=== PATIENT | male | born 1960 | race Caucasian/White ===

== ENCOUNTER 2019-01-31 08:32 | Inpatient (IN) | payer MEDICARE ==
[~2019-01-31] VITALS: Ht 185.4 cm; Wt 123.8 kg
--- NOTE | ~2019-01-31 | OP ---
PATIENT NAME: NIEL CUEVAS MEDICAL RECORD: [id number] :60 LOCATION:[facility] [place] ADMISSION DATE:01/31/19 SURGEON: TERESA RUDD MD DATE OF OPERATION: 01/31/2019 REFERRING PHYSICIANS: 1. Garry Cervantes MD 2. Archie Uriarte MD ATTENDING PHYSICIAN TODAY: Jareth Linton MD PREOPERATIVE DIAGNOSES: End-stage renal disease and dependence on hemodialysis with a left brachiocephalic arteriovenous fistula, created by Dr. Gonzalez in November of 2016, now with recurring stenosis in the cephalic arch and recurring in-stent and xu-stent stenoses. OPERATIONS PERFORMED: Left arm AV fistulogram with balloon angioplasty of recurrent cephalic arch stenosis and Lutonix drug-coated balloon treatment. Balloon angioplasty of a less significant 70% stenosis of the cephalic vein in the upper third of the humerus. SURGEON: Teresa Rudd MD ANESTHESIA: General with LMA per SECURITY SYSTEM ENGINEER. PREOPERATIVE NOTE: Mr. Cuevas is a 58-year-old -[place] male patient from [place], [place]. He has hypertension, diabetes, and end-stage renal disease. He is on dialysis in [place] with a left BC AV fistula. He has had problems with recurring carotid arch stenosis, which has required many angioplasties at [facility]. He has had a Wallstent graft implanted in the carotid arch and continues to have recurring in-stent and xu-stent stenoses. Last angiogram was done, I believe, in October by Dr. Uriarte. It was his recommendation that the patient should have a drug-coated balloon treatment. The patient has not had an angioplasty since that time as far as I know. His fistula on my exam today is hyperpulsatile and his exam is certainly consistent with recurrent cephalic arch stenosis. The patient is not a smoker, but uses smokeless tobacco. He is not on any anticoagulants or antiplatelet medications. DESCRIPTION OF PROCEDURE: With the patient under anesthesia in supine position, he was prepped and draped in sterile manner. The fistula was accessed with micropuncture technique and a 6-Venezuelan introducer sheath was placed. Contrast injections revealed an area of 70% stenosis in the cephalic vein in the upper third of the arm and high-grade pre-stent and intra-stent stenoses in the carotid arch. There was a fairly large collateral around this stent, also between the cephalic vein and the subclavian vein. The area of stenosis in the cephalic arch and stent was then dilated with a high pressure 9 x 60 angioplasty balloon and the stenosis in the body of the vein in the upper third of the arm was likewise dilated. Contrast injections revealed a good result with a 90% in-stent stenosis, going to a 10% residual. I then inserted first a 10 x 60 Lutonix balloon. This was placed across the proximal cephalic arch and its confluence with the subclavian vein and the in-stent stenosis. It was inflated to 11 atmospheres and held inflated for 2 minutes by the clock and then deflated. A second Lutonix balloon, this one 10 mm in diameter x 40 mm in length, was applied in an overlapping manner to treat the distal end of the stent and the pre-stent stenosis. It was likewise inflated to 11 atmospheres OPERATIVE REPORT [id number] NEIL CUEVAS and held for 2 minutes. After the Lutonix balloons were removed, contrast injections revealed an excellent angiographic appearance and subsequently the hardware was removed. Hemostasis obtained at the puncture site with a pursestring 4-0 Prolene suture and some gentle direct pressure. Sterile dressing of Ultrafoam, Tegaderm, and Cavilon was applied and the patient then was awakened and taken to the recovery room. Blood loss throughout was insignificant and unreplaced. Sponges, instruments, and needles were accounted for. No drain was used and no surgical specimen was submitted for histopathology. PLAN: The patient will be started on Plavix 75 mg daily. That prescription will be telephoned to the patient's pharmacy. A prescription for #30, to be refilled three times. The patient will be instructed that he is to continue Plavix until he is told to stop it. Also, he is to be scheduled for a followup angiogram at [facility] in 3 months, hopefully per Dr. Uriarte. He will return to see me on a p.r.n. basis. TRANSINT:[id number] Voice Confirmation ID: [id number] DOCUMENT ID: [id number] CC: [facility] Procedure Center TERESA Ayala MD CC: ARCHIE URIARTE HINTON, JOHNNIE, III MD and JARETH LINTON [id number] DICTATION DATE: 01/31/19 1306 CASTABLES WORKER: 01/31/19 1421 DIS IN 01/31/19 [facility] [address] [facility] [place] [address]
[2019-01-31 09:25] LABS: ANION GAP 16.6 mmol/L (8-16); CALCIUM 9.2 mg/dL (8.5-10.1); CARBON DIOXIDE 26.1 mmol/L (21.0-32.0); POTASSIUM - SERUM 3.7 mmol/L (3.5-5.1)
[2019-01-31 09:38] LABS: INR 0.92 (0.85-1.17); PROTIME 12.3 SECONDS (11.6-15.0)
[2019-01-31] MEDS ORDERED: ZYLOPRIM300 MG PO (09:47)
[2019-01-31] MEDS ORDERED: HYDRALAZINE HC100 MG PO (09:47)
[2019-01-31] MEDS ORDERED: LIPITOR20 MG PO (09:47)
[2019-01-31] MEDS ORDERED: COREG25 MG PO (09:48)
[2019-01-31] MEDS ORDERED: LASIX40 MG PO (09:48)
[2019-01-31] MEDS ORDERED: RENVELA800 MG PO (09:49)
[2019-01-31] MEDS ORDERED: FISH OIL 1,0001 CA1 PO (09:49)
[2019-01-31 10:06] VITALS: BMI 36.1
[2019-01-31 10:31] LABS: BASOPHILS 0.8 % (0-2); HEMOGLOBIN 11.7 g/dL (13.5-17.5); IMMATURE GRANULOCYTES 0.3 % (0-5); LYMPHOCYTES 23.2 % (15-50); MCH 32.2 pg (26.0-34.0); MCHC 32.5 g/dL (31.0-37.0); MCV 99.2 fL (80.0-100.0); MEAN PLATELET VOLUME 11.1 fL (7.4-10.4); MONOCYTES 14.4 % (2-11); NEUTROPHILS 59.3 % (40-80); PLATELET COUNT 146 10x3/uL (130-400); RBC 3.63 10x6/uL (4.20-6.10); RDW 14.5 % (11.5-14.5)
[2019-01-31 12:58] VITALS: Ht 185.4 cm; Wt 123.8 kg
--- NOTE | 2019-01-31 13:29 | NUR ---
1325 RX OF PLAVIX PHONED INTO [facility] IN [place]. DANIELA GOMEZ APN PAGED TO ARRANGE 3 MONTH APPT WITH [facility] FOR THIS PT WITH DR. URIARTE. 1333 DANIELA ROSS APN RETURNED CALL AND WILL ARRANGE APPT AND NOTIFY PT WHEN THAT APPT IS MADE.
== END 2019-01-31 14:10 | disposition home or self-care (01) | DRG 252 ==
LOC: D.SDCHOLD 08:32
PROVIDERS: Surgery; ADMIT Internal Medicine Nephrology; ATTEND Internal Medicine Nephrology
PROC: B51W1ZZ Fluoroscopy of Dialysis Shunt/Fistula using Low Osmolar Contrast (ICD-10-PCS; principal; 2019-01-31 10:15)
PROC: 057 Upper Veins, Dilation (ICD-10-PCS; 2019-01-31 10:15)
DX: T82.858A Stenosis of other vascular prosthetic devices, implants and grafts, initial encounter (principal); N18.6 End stage renal disease; I12.0 Hypertensive chronic kidney disease with stage 5 chronic kidney disease or end stage renal disease; Y83.9 Surgical procedure, unspecified as the cause of abnormal reaction of the patient, or of later complication, without mention of misadventure at the time of the procedure; E11.22 Type 2 diabetes mellitus with diabetic chronic kidney disease; Z99.2 Dependence on renal dialysis; Z72.0 Tobacco use